=== PATIENT | male | born 1945 | race Caucasian/White ===

== ENCOUNTER 2017-11-02 10:52 | Outpatient (CLI) | payer MEDICARE ==
--- NOTE | 2017-11-02 16:13 | CT Report ---
Reason: ANTERIOR ABDOMINAL WALL MASS Procedure Date: 11/02/2017 Accession Number: [id number] / [id number] Procedure: CT - Abdomen W/O CPT Code: FULL RESULT: EXAM: CT ABDOMEN EXAM DATE: 11/02/2017 12:11 PM. CLINICAL HISTORY: Anterior abdominal wall mass. COMPARISON: None. TECHNIQUE: Routine helical CT imaging was performed through the abdomen. IV contrast: None Enteric contrast: No. Reconstruction: Coronal and sagittal. In accordance with CT protocol optimization, one or more of the following dose reduction techniques were utilized for this exam: automated exposure control, adjustment of mA and/or KV based on patient size, or use of iterative reconstructive technique. FINDINGS: Lung Bases: Unremarkable. Liver: Normal. No masses. Gallbladder/Bile Ducts: Unremarkable. Spleen: Normal. Pancreas: Normal. Adrenal Glands: Normal. Kidneys: Normal. No masses or hydronephrosis. Peritoneal Cavity/Bowel: Normal. No free fluid, free air or adenopathy. No masses or acute intra-abdominal inflammatory process. Vasculature: No aneurysms or other significant abnormality. Bones: No significant abnormality. Other: Fat stranding is seen along the midline anterior abdominal wall in the region marked with a BB. The appearance is most consistent with an approximately 1.3 cm piece of intra-abdominal fat incarcerated through a small nonvisualized anterior abdominal wall defect, fat-containing hernia. IMPRESSION: Suspect 1.3 cm fat-containing incarcerated hernia. RADIA
== END 2017-11-02 10:53 | disposition home or self-care (01) ==
LOC: DI 10:52
PROVIDERS: ATTEND Internal Medicine
DX: R19.09 Other intra-abdominal and pelvic swelling, mass and lump (principal)
CPT/HCPCS: 74150

== ENCOUNTER 2017-12-28 13:28 | Day surgery (SDC) | payer MEDICARE ==
[~2017-12-28 13:28] MED LIST: ceFAZolin 2 GM/50 ML 2 GM/50 ML BAG IV ONE
[2017-12-28] MEDS ORDERED: LACTATED RINGERS 1,000 ML IV ONE (14:05)
--- NOTE | 2017-12-28 14:11 | ANESTHESIA ---
Pre-Anesthesia VS, & Labs - Diagnosis Ventral hernia - Procedure Ventral hernia repair Vital Signs: Temp Pulse Resp BP Pulse Ox 36.4 C L 76 16 111/78 99 12/28/17 13:40 12/28/17 13:40 12/28/17 13:40 12/28/17 13:40 12/28/17 13:40 Height 5 ft 10 in Weight (kg) 68.6 kg - NPO >8 hours Last Fluid Intake: coffee at 7, water@ 1000 Home Medications and Allergies Home Medications: Ambulatory Orders Quetiapine Fumarate [Seroquel] 50 mg PO 12/28/17 traZODone [Desyrel] 50 mg PO HS 12/28/17 Quetiapine Fumarate [Seroquel] 50 mg PO 12/28/17 traZODone [Desyrel] 50 mg PO HS 12/28/17 Allergies/Adverse Reactions: Allergies Allergy/AdvReac Type Severity Reaction Status Date / Time No Known Drug Allergies Allergy Verified 12/28/17 13:26 Anes History & Medical History - Anesthetic History Anesthesia Complications: reports: No previous complications Family history of Anesthesia Complications: Denies Family history of Malignant Hyperthermia: Denies - Medical History Cardiovascular: reports: None Pulmonary: reports: None Gastrointestinal: reports: None Urinary: reports: None Neuro: reports: None Musculoskeletal: reports: None Endocrine/Autoimmune: reports: None Blood Disorders: reports: None Skin: reports: None Smoking Status: Never smoker Psychosocial: reports: No issues indicated - Surgical History General: Other (inguinal hernia repair) Eyes Ears Nose Throat (EENT): Tonsil/Adenoidectomy Exam General: Alert Dental: WNL Mouth Opening: Greater than 4 Fingerbreadths Neck Mobility: Normal Mallampati classification: II Thyromental Distance: greater than 6 cm Respiratory: Lungs clear Cardiovascular: Regular rate Neurological: Normal speech Mental/Cognitive Status: Alert/Oriented X3 Cognitive Status: Within normal limits Plan Anesthesia Type: General Consent for Procedure(s) Verified and Reviewed: Yes Code Status: Attempt Resuscitation ASA classification: 1-Healthy patient Is this case an emergency?: No
[2017-12-28] MEDS ORDERED: BUPIVACAINE 0.5% PF 30 ML VIAL ONE (15:02)
[2017-12-28] MEDS ORDERED: BUPIVACAINE 0.5% PF 30 ML VIAL INFIL ONE (16:43)
[2017-12-28] MEDS ORDERED: MIDAZOLAM 2 MG/2 ML VIAL IVP ONE (17:00)
[2017-12-28] MEDS ORDERED: PROPOFOL 200 MG/20 ML VIAL IVP ONE (17:00)
[2017-12-28] MEDS ORDERED: LIDOCAINE-MPF 2% 5 ML VIAL IM ONE (17:00)
[2017-12-28] MEDS ORDERED: fentaNYL 100 MCG/2 ML VIAL IVP ONE (17:00)
--- NOTE | 2017-12-28 17:06 | OPERATIVE REPORT ---
Operative Report - General Procedure Date: 12/28/17 Planned Procedure: Ventral herniorrhaphy Pre-Op Diagnosis: Ventral hernia Procedure Performed: Ventral herniorrhaphy Post Op Diagnosis: Same. - Procedure Note Primary Surgeon: Baldo Sinder MD Anesthesia Provider: Serafin Pennington CRNA Anesthesia Technique: Local (30 mL 1/2% marcaine), MAC IV Fluids (mL): 400 Estimated Blood Loss (mL): 1 Complications: None. - Other Other Information/Narrative: OPERATIVE DESCRIPTION/REPORT: After verbal and written informed consent was obtained detailing the risks of infection, bleeding requiring transfusion with its risks, nerve injury, and , and after I met with the patient confirming the surgery and the site of the surgery, the patient was brought to the operative suite and placed supine on the operating table. Great care was taken to avoid pressure points to prevent pressure necrosis or nerve injury. Monitoring devices were applied along with TEDs and pneumatic compressive stockings (to prevent DVT). The patient received preoperative antibiotics for surgical prophylaxis. Serafin Pennington CRNA sedated and anesthetized the patient for the entire procedure. The patient was prepped and draped in the usual sterile manner. With the patient draped my initials were clearly visible. A "time in" then confirmed that the patient was identified with 3 identifiers (name, date and medical record number), the history and physical was in the chart, the signed consent confirming the procedure was in the chart, the patient was in the correct position, the aforementioned prophylactic measures were in place or given, we had the correct personnel and equipment to complete the procedure and that anesthesia, surgery and nursing were given an opportunity to express any concerns. With the agreement of everyone in the room, we proceeded with the operation. After measuring up from the umbilicus (with the distance provided by review of the CT scan) and after injecting the area with 1/2% marcaine, a standard vertical incision was made and dissection was carried down to the hernia sac using a combination of Metzenbaum scissors and Bovie electrocautery. The sac was cleared of overlying adherent tissue, and the fascial defect was delineated. The fascia was cleared of any adherent tissue for a distance 1.5 cm from the defect. The sac was resected using Bovie electrocautery. The defect was closed primarily using 1 simple interrupted 0-Prolene suture and 1 figure-8 0-Prolene suture taking care to bury the knots. The subcutaneous tissues were approximated using a 2-0 Vicryl. Meticulous hemostasis was obtained using Bovie electrocautery. The skin incision was approximated with a running 4-0 Monocryl. At this point a time out was performed that confirmed that all the counts were correct, the procedure that was performed, the blood loss, the urine output, the IV fluids administered, and the patients condition. Having tolerated the procedure well, the patient was subsequently taken to short stay in good and stable condition. [employer] disclaimer: This document was created in part using voice recognition technology. Because of the inherent limitations of the system ([employer]'s [employer] user manual states that the licensee understands that speech recognition is a statistical process and that recognition errors are inherent in the process), occasional same sounding word substitutions and grammatical errors do occur and persist despite proofreading. Please read this document for context.
[2017-12-28] MEDS ORDERED: HYDROcod/ACETAM 5/325 MG TABLET PO PRN (17:18)
[2017-12-28] MEDS ORDERED: ONDANSETRON 4 MG/2 ML VIAL IVP PRN (17:18)
[2017-12-28] MEDS ORDERED: oxyCODONE 5 MG TABLET PO PRN (17:18)
[2017-12-28 17:53] VITALS: BP 132/92
== END 2017-12-28 13:29 | disposition home or self-care (01) ==
LOC: SDS 13:28
PROVIDERS: ATTEND Surgery
PROC: 0WQF0ZZ Repair Abdominal Wall, Open Approach (ICD-10-PCS; principal; 2017-12-28 14:45)
DX: K43.6 Other and unspecified ventral hernia with obstruction, without gangrene (principal)
CPT/HCPCS: 49561; J0690; J7120

== ENCOUNTER 2018-02-17 08:16 | Outpatient (CLI) | payer MEDICARE ==
[2018-02-17 14:20] LABS: EOSINOPHILS # (AUTO) 0.2 10^3/uL (0.0-0.7); EOSINOPHILS % (AUTO) 4.4 %; HGB - HEMOGLOBIN 14.1 g/dL (14.0-18.0); LYMPHOCYTES # (AUTO) 1.3 10^3/uL (1.5-3.5); LYMPHOCYTES % (AUTO) 30.4 %; MEAN CORPUSCULAR HEMOGLOBIN 33.5 pg (27.0-31.0); MEAN CORPUSCULAR HGB CONC 34.2 g/dL (32.0-36.0); MEAN CORPUSCULAR VOLUME 98.1 fL (80.0-94.0); MEAN PLATELET VOLUME 9.8 fL (7.4-11.4); MONOCYTES # (AUTO) 0.5 10^3/uL (0.0-1.0); MONOCYTES % (AUTO) 12.7 %; NEUTROPHILS # (AUTO) 2.1 10^3/uL (1.5-6.6); NEUTROPHILS % (AUTO) 51.5 %; PLT - PLATELET COUNT 190 10^3/uL (130-450); RED BLOOD COUNT 4.22 10^6/uL (4.70-6.10); RED CELL DISTRIBUTION WIDTH 13.6 % (12.0-15.0); WHITE BLOOD COUNT 4.1 x10^3/uL (4.8-10.8)
[2018-02-17 14:34] LABS: ALBUMIN 3.8 g/dL (3.2-5.5); ALBUMIN/GLOBULIN RATIO 1.5 (1.0-2.2); ALKALINE PHOSPHATASE 42 IU/L (42-121); ALT ALANINE AMINOTRANSFERASE 17 IU/L (10-60); AST ASPARTATE AMINOTRANSFERASE 28 IU/L (10-42); BILIRUBIN,TOTAL 0.9 mg/dL (0.2-1.0); BUN - BLOOD UREA NITROGEN 18 mg/dL (6-20); CALCIUM 8.8 mg/dL (8.5-10.3); CARBON DIOXIDE - CO2 29 mmol/L (21-32); CHLORIDE 100 mmol/L (101-111); CHOL/HDL RATIO 2.1 (<5.0); CHOLESTEROL 154 mg/dL; CREATININE 0.8 mg/dL (0.6-1.2); GFR - MDRD 95 (>89); GLUCOSE 99 mg/dL (70-100); HB2 TOTAL 14.8 g/dL; HDL CHOLESTEROL 72 mg/dL; HEMOGLOBIN A1C 0.5 g/dL; HEMOGLOBIN A1C % 5.2 % (4.6-6.2); LDL CHOLESTEROL,CALCULATED 65 mg/dL; LDL/HDL RATIO 0.9 (<3.6); SODIUM 134 mmol/L (135-145); TOTAL PROTEIN 6.3 g/dL (6.7-8.2); VLDL CHOLESTEROL 17 mg/dL
== END 2018-02-17 08:17 | disposition home or self-care (01) ==
LOC: LAB.F 08:16
PROVIDERS: ATTEND Specialist
DX: G47.00 Insomnia, unspecified (principal); F32.9 Major depressive disorder, single episode, unspecified; Z13.6 Encounter for screening for cardiovascular disorders
CPT/HCPCS: 36415; 80053; 80061; 83036; 83721; 84443; 85025

== ENCOUNTER 2019-02-21 08:55 | Outpatient (CLI) | payer MEDICARE ==
--- NOTE | 2019-02-21 14:29 | XRAY Report ---
Reason: CHRONIC INSTABILITY OF KNEE, LEFT KNEE Procedure Date: 02/21/2019 Accession Number: [id number] / [id number] Procedure: XRS - Knee 3 View LT CPT Code: Final Report FULL RESULT: EXAM: LEFT KNEE RADIOGRAPHY EXAM DATE: 02/21/2019 09:08 AM. CLINICAL HISTORY: CHRONIC INSTABILITY OF KNEE, LEFT KNEE. COMPARISON: None. TECHNIQUE: 4 views. FINDINGS: Bones: Normal. No fractures or bone lesions. Joints: Spurring of the tibial spine. Chondrocalcinosis. Osteophyte patellofemoral compartment. No effusion. Soft Tissues: Normal. No soft tissue swelling. IMPRESSION: 1. Mild DJD. 2. Chondrocalcinosis RADIA
== END 2019-02-21 08:56 | disposition home or self-care (01) ==
LOC: DI.S 08:55
PROVIDERS: ATTEND Physician Assistant
DX: M17.12 Unilateral primary osteoarthritis, left knee (principal); M11.262 Other chondrocalcinosis, left knee